=== PATIENT | female | born 1965 | race Caucasian/White ===

== ENCOUNTER 2020-10-15 11:05 | Emergency (ER) | payer SELFPAY ==
[2020-10-15 11:15] VITALS: BP 124/67; PULSE 76; RESP 17; TEMP 36.5; O2SAT 98; BMI 26.4
[2020-10-15 12:30] LABS: Bacteria Urine None Seen; RBC Urine None Seen (0-5/HPF)
[2020-10-15 12:32] LABS: Appearance Urine UA CLEAR; Bilirubin Urine UA NEGATIVE (NEGATIVE); Color Urine UA YELLOW; Glucose Urine UA NEGATIVE (Negative); Ketones Urine UA NEGATIVE (NEGATIVE); Leukocyte Esterase Urine UA NEGATIVE (NEGATIVE); Nitrite Urine UA NEGATIVE (Negative); Occult Blood Urine UA NEGATIVE (Negative); Protein Urine UA NEGATIVE (Negative); Urobilinogen Urine UA 0.2 E.U./dL (0.2)
[2020-10-15 12:37] LABS: pH Urine UA 6.5 (4.5-8.0)
[2020-10-15 12:45] LABS: UR Morphine/Opiate cutoff 300 Negative (Negative); Ur Creatinine Normal (Normal); Ur Specific Gravity Normal (Normal); Urine Amphetamines Positive (Negative); Urine Barbiturates Negative (Negative); Urine Benzodiazepines Negative (Negative); Urine Cocaine Negative (Negative); Urine MDMA Negative (Negative); Urine Methadone Negative (Negative); Urine Methamphetamines Positive (Negative); Urine Oxycodone Negative (Negative); Urine Phencyclidine Negative (Negative); Urine Tetrahydrocannabinol Positive (Negative); Urine Tricyclic Antidepressant Negative (Negative); Urine pH Normal (Normal)
[2020-10-15] MEDS: TET,DIPH,PERTUSS(ACELL),VAC/PF 0.5 ML SYRINGE IM (12:49)
[2020-10-15] MEDS: KETOROLAC 30 MG/ML VIAL IM (12:49)
[2020-10-15 12:57] LABS: WBC Urine 0-1/HPF (0-5/HPF)
[2020-10-15 12:58] LABS: Amorphous Sediment Urine 1+; Culture Indicated Urine Cult Not Indicated; Squamous Epithelial Cell Urine None Seen (0-5/HPF)
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
[2020-10-15 13:19] LABS: Add Manual Diff / Slide Review NO; Basophils Absolute Auto 0 /uL (0-100); Basophils Percent Auto 0.5 % (0-2); Eosinophils Absolute Auto 100 /uL (0-450); Eosinophils Percent Auto 2.1 % (2-4); Hematocrit 41.7 % (36-46); Hemoglobin 13.8 g/dL (12.0-16.0); Lymphocytes Absolute Auto 1700 /uL (1100-4500); Lymphocytes Percent Auto 23.7 % (25-40); Mean Corpuscular HGB Conc 33.1 % (30-36); Mean Corpuscular Hemoglobin 29.8 PG (26-34); Monocytes Absolute Auto 600 /uL (0-900); Monocytes Percent Auto 8.9 % (3-14); Neutrophils Absolute Auto 4500 /uL (1500-7000); Neutrophils Percent Auto 64.8 % (50-75); Platelet Count 326 X10^3/uL (150-400); Red Blood Cell Count 4.64 X10^6/uL (4.0-5.2); Red Cell Distribution Width 13.1 % (11.6-14.8)
[2020-10-15 13:31] LABS: BUN Creatinine Ratio 14.5 (6-22); Blood Urea Nitrogen 8 mg/dL (7-17); Calcium 8.9 mg/dL (8.4-10.2); Carbon Dioxide 27 mmol/L (22-32); Chloride 105 mmol/L (98-107); Estimated Glomerular Filt Rate > 60.0 mL/min (>60); Glucose 94 mg/dL (70-100); HEMOLYSIS 17 (0-50); Potassium 4.5 mmol/L (3.4-5.1); Sodium 137 mmol/L (137-145)
--- NOTE | 2020-10-15 13:47 | PC.NURSE ---
multiple areas of scabs in various states of healing. Pt very jumpy, difficulty in staying still.
[2020-10-15 14:05] VITALS: BP 122/78; PULSE 80; RESP 14; O2SAT 99
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
== END 2020-10-15 14:33 | disposition home or self-care (01) ==
PROVIDERS: Emergency Provider Nurse Practitioner Family
DX: L02.31 Cutaneous abscess of buttock (principal); L02.413 Cutaneous abscess of right upper limb; W57.XXXA Bitten or stung by nonvenomous insect and other nonvenomous arthropods, initial encounter; Z23 Encounter for immunization
CPT/HCPCS: 36415; 80048; 80305; 81001; 85025; 87070; 87075; 87077; 87147; 87186; 87205; 90471; 96372; 99283; 90715; J1885

== ENCOUNTER 2023-03-17 13:32 | Emergency (ER) | payer SELFPAY ==
[2023-03-17 13:39] VITALS: BP 139/83; PULSE 87; RESP 16; TEMP 36.8; O2SAT 100; BMI 22.6
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
[2023-03-17 15:26] LABS: UR Morphine/Opiate cutoff 300 Negative (Negative); Ur Creatinine Normal (Normal); Ur Specific Gravity Normal (Normal); Urine Amphetamines Negative (Negative); Urine Barbiturates Negative (Negative); Urine Benzodiazepines Negative (Negative); Urine Cocaine Negative (Negative); Urine MDMA Negative (Negative); Urine Methadone Negative (Negative); Urine Methamphetamines Negative (Negative); Urine Oxycodone Negative (Negative); Urine Phencyclidine Negative (Negative); Urine Tetrahydrocannabinol Positive (Negative); Urine Tricyclic Antidepressant Negative (Negative); Urine pH Normal (Normal)
[2023-03-17 15:43] LABS: Bacteria Urine None Seen; Culture Indicated Urine Cult Not Indicated; RBC Urine None Seen (0-5/HPF); Squamous Epithelial Cell Urine 1-5 /HPF (0-5/HPF); WBC Urine 1-5/HPF (0-5/HPF)
--- NOTE | 2023-03-17 15:46 | ED_ITS ---
HPI - Recheck/Abnormal Lab/Rx <Sonam Avitia PA-C - Last Filed: 03/17/23 18:05> General Chief Complaint: Recheck/Abnormal Lab/Rx Stated Complaint: post viral inf/lost medication traveling Time Seen by Provider: 03/17/23 14:03 Source: patient Mode of arrival: Ambulatory History of Present Illness HPI narrative: 49-year-old female with history of polysubstance abuse here in the ED for complaints of dizziness and urinary frequency. also has a cough. Hx of COPD, heavy smoker. She states that she was inpatient at [facility] and was discharged 1 week ago. States she was diagnosed with a blood infection during that stay and was discharged with oral antibiotics but she lost them [place] the airport after discharge. States she never took them. She does not remember any other details other than that antibiotics were for a blood infection. She was then seen at [facility] yesterday and patient reports that she left without being seen but medical records were reviewed and patient was seen for urinary frequency with a negative UA and patient was discharged. Patient has vague complaints today. States she is feeling worse since discharge from her possible stay in [place]. Records finally received from [facility] which indicates that patient has been seen numerous times there for episodes of upper extremity thrombophlebitis, most recently admitted from with bacteremia associated with the thrombophlebitis with culture confirmed strep pyogenes. Records indicate that she always leaves [facility]ice prior to finishing her antibiotics and then returns again at a later time for the same issue. She left Against Medical Advice on 02/21 and then returned on 03/07 and was admitted again for bacteremia treatment. According to records from her most recent hospital stay she did essentially complete the full 14 day treatment for bacteremia and her most recent blood cultures were negative. She was discharged on Keflex for 5 days for UTI but otherwise no further treatment was indicated and she had no further evidence of thrombophlebitis. Patient lost her prescription for Keflex and never was treated for the UTI but her UA yesterday at [place] and her UA today here are both negative for infection. She is still complaining of urinary frequency. Related Data Home Medications Medication Instructions Recorded Confirmed albuterol sulfate 90 mcg/actuation 2 inh inhalation Q6HR PRN Wheezing 10/15/20 10/15/20 aerosol inhaler fluoxetine 20 mg capsule 20 mg PO DAILY 10/15/20 10/15/20 gabapentin 300 mg capsule 300 mg PO BID 10/15/20 10/15/20 propranolol 10 mg tablet 10 mg PO DAILY 10/15/20 10/15/20 tiotropium bromide 2.5 1 inh inhalation DAILY 10/15/20 10/15/20 mcg/actuation mist for inhalation (Spiriva Respimat) Previous Rx's Medication Instructions Recorded chlorpromazine 50 mg tablet 50 mg PO TID #60 tabs 03/17/23 Allergies Allergy/AdvReac Type Severity Reaction Status Date / Time Penicillins Allergy Verified 03/17/23 14:27 Review of Systems <Sonam Avitia PA-C - Last Filed: 03/17/23 18:05> Review of Systems Narrative: GENERAL: Reports chills, fatigue, malaise. No fever HEENT: Denies sinus pain, ear pain, sore throat, difficulty swallowing, dizziness. RESPIRATORY: Denies dyspnea, wheezing, hemoptysis, sputum. Reports cough CARDIOVASCULAR: Denies chest pain, palpitations, orthopnea, edema, GASTROINTESTINAL: Denies nausea, vomiting, abdominal pain, diarrhea, constipation, melena. : Denies dysuria, frequency, incontinence, hematuria, urinary retention. MUSCULOSKELETAL: denies weakness, joint pain, or bony pain SKIN: Denies rash, skin lesions, or other NEUROLOGIC: Denies weakness, headache, numbness, change in speech, confusion, seizures, incoordination. PSYCHIATRIC: No concerning psychosocial issues. 12 point review of systems is negative except for those stated above Patient History <Sonam Avitia PA-C - Last Filed: 03/17/23 18:05> Social History Smoking Status: Current every day smoker Smoking Status: Current every day smoker alcohol intake frequency: holidays/special occasions only Substance Use Type: marijuana Exam <MAYNOR Wolf Last Filed: 03/17/23 18:05> Narrative Exam Narrative: GENERAL: [57] year old patient appears stated age. Well-developed patient, in no acute distress. HEAD: Atraumatic. Normocephalic. EYES: Pupils equal round and reactive. Extraocular motions intact. No scleral icterus. No injection or drainage. ENT: Nose without bleeding, purulent drainage. Airway patent. NECK: Trachea midline. Non tender CARDIOVASCULAR: Regular rate and rhythm without murmurs, gallops, or rubs. RESPIRATORY: Diffuse rhonchi in all lung hernandez. Good air entry throughout. Moderate cough noted. No respiratory distress GASTROINTESTINAL: Abdomen soft, non-tender, nondistended. EXTREMITIES: No edema or joint tenderness. No evidence of cellulitis, no palpable cords or evidence of infection anywhere on upper and lower extremities BACK: Nontender without deformity or crepitance. No flank tenderness. NEURO: AOx3. SKIN: No rash or erythema of visible areas Initial Vital Signs Initial Vital Signs: Vital Signs Temperature 98.2 F 03/17/23 13:39 Pulse Rate 87 03/17/23 13:39 Respiratory Rate 16 03/17/23 13:39 Blood Pressure 139/83 03/17/23 13:39 Pulse Oximetry 100 03/17/23 13:39 Oxygen Delivery Method Room Air 03/17/23 13:39 <Narda Monroe DO - Last Filed: 03/18/23 09:40> Initial Vital Signs Initial Vital Signs: Vital Signs Temperature 98.2 F 03/17/23 13:39 Pulse Rate 87 03/17/23 13:39 Respiratory Rate 16 03/17/23 13:39 Blood Pressure 139/83 03/17/23 13:39 Pulse Oximetry 100 03/17/23 13:39 Oxygen Delivery Method Room Air 03/17/23 13:39 Course <Sonam Avitia PA-C - Last Filed: 03/17/23 18:05> Orders Ordered: Discontinued Medications Chlorpromazine HCl (Chlorpromazine 25 Mg Tablet) 50 mg PO NOW ONE Stop: 03/17/23 17:33 Last Admin: 03/17/23 17:41 Dose: Not Given Documented By: TAJ Lorazepam (Lorazepam 0.5 Mg Tablet) 0.5 mg PO NOW ONE Stop: 03/17/23 17:32 Last Admin: 03/17/23 17:41 Dose: 0.5 mg Documented By: TAJ Vital Signs Vital signs: Vital Signs - 8 hr 03/17/23 13:39 03/17/23 17:43 Temperature 98.2 F Pulse Rate 87 74 Respiratory Rate 16 18 Blood Pressure 139/83 150/98 H Pulse Oximetry 100 99 Oxygen Delivery Method Room Air Room Air <Narda Monroe DO - Last Filed: 03/18/23 09:40> Orders Ordered: Discontinued Medications Chlorpromazine HCl (Chlorpromazine 25 Mg Tablet) 50 mg PO NOW ONE Stop: 03/17/23 17:33 Last Admin: 03/17/23 17:41 Dose: Not Given Documented By: RL Lorazepam (Lorazepam 0.5 Mg Tablet) 0.5 mg PO NOW ONE Stop: 03/17/23 17:32 Last Admin: 03/17/23 17:41 Dose: 0.5 mg Documented By: RL Vital Signs Vital signs: Vital Signs - 8 hr 03/17/23 13:39 03/17/23 17:43 Temperature 98.2 F Pulse Rate 87 74 Respiratory Rate 16 18 Blood Pressure 139/83 150/98 H Pulse Oximetry 100 99 Oxygen Delivery Method Room Air Room Air MDM - Recheck/Abnormal Lab/Rx <Sonam Avitia PA-C - Last Filed: 03/17/23 18:05> Lab Data 03/17/23 16:40 03/17/23 16:40 Labs: Lab Results 03/17/23 03/17/23 03/17/23 Range/Units 15:00 16:29 16:40 WBC 6.0 (4.5-11.0) X10^3/uL RBC 4.18 (4.0-5.2) X10^6/uL Hgb 12.5 (12.0-16.0) g/dL Hct 37.3 (36-46) % MCV 89.3 (80-100) fL MCH 30.0 (26-34) PG MCHC 33.6 (30-36) % RDW 14.0 (11.6-14.8) % Plt Count 343 (150-400) X10^3/uL Neut % (Auto) 50.7 (50-75) % Lymph % (Auto) 35.0 (25-40) % [place] % (Auto) 10.4 (3-14) % Eos % (Auto) 2.8 (2-4) % Baso % (Auto) 1.1 (0-2) % Neut # (Auto) 3100 (5762-8710) /uL Lymph # (Auto) 2100 (5144-7966) /uL [place] # (Auto) 600 (0-900) /uL Eos # (Auto) 200 (0-450) /uL Baso # (Auto) 100 (0-100) /uL Sodium 134 L (137-145) mmol/L Potassium 4.2 (3.4-5.1) mmol/L Chloride 101 (98-107) mmol/L Carbon Dioxide 26 (22-32) mmol/L BUN 15 (7-17) mg/dL Creatinine 0.53 (0.52-1.04) mg/dL Estimated GFR > 60 (>60) mL/min BUN/Creatinine Ratio 28.3 H (6-22) Glucose 99 (70-100) mg/dL Calcium 9.2 (8.4-10.2) mg/dL Total Bilirubin 0.2 (0.2-1.3) mg/dL AST 38 H (14-36) IU/L ALT 29 (<35) IU/L Alkaline Phosphatase 64 (38-126) U/L Total Protein 7.2 (6.3-8.2) g/dL Albumin 4.1 (3.5-5.0) g/dL Globulin 3.1 (1.7-4.1) g/dL Albumin/Globulin Ratio 1.3 (1.0-2.8) Urine RBC None seen (0-5/HPF) Urine WBC 1-5/hpf (0-5/HPF) Ur Squamous Epith Cells 1-5 /hpf (0-5/HPF) Urine Bacteria None seen (None) Ur Culture Indicated? Cult not indicated U Opiates 300ng/mL cut Negative (Negative) Ur Oxycodone Screen Negative (Negative) Urine Methadone Screen Negative (Negative) Ur Barbiturates Screen Negative (Negative) U Tricyclic Antidepress Negative (Negative) Ur Phencyclidine Scrn Negative (Negative) Ur Amphetamines Screen Negative (Negative) U Methamphetamines Scrn Negative (Negative) Ur MDMA Scrn (Ecstasy) Negative (Negative) U Benzodiazepines Scrn Negative (Negative) Urine Cocaine Screen Negative (Negative) U Marijuana (THC) Screen Positive H (Negative) SARS-CoV-2 (PCR) Negative (Negative) Influenza A (RT-PCR) Flu a negative (NEGATIVE) Influenza B (RT-PCR) Flu b negative (NEGATIVE) RSV (PCR) Negative (Negative) Urine Dip Bedside Urine Glucose Negative Bedside Urine Bilirubin - Negative Bedside Urine Ketone - Negative Urine Specific [place] 1.010 Bedside Urine Occult Blood - Negative Bedside Urine pH 8 Bedside Urine Protein - Negative Bedside Urine Urobilinogen - Negative Bedside Urine Nitrite - Negative Bedside Urine Leukocytes ++ 125 Esterase Imaging Data Chest x-ray: Radiologist's Impression: [address] [address] XRay Report Signed Patient: Cynthia Owusu MR#: [id number] : 1965 Acct:[id number] Age/Sex: 57 / F Date of Service: 03/17/23 Loc: ED Accession Number: [id number] Procedure: XR chest 2V Ordering Provider: Sonam Avitia P.A-C PROCEDURE: XR CHEST 2V INDICATIONS: cough TECHNIQUE: 2 views of the chest were acquired. COMPARISON: None. FINDINGS: Surgical changes and devices: None. Lungs and pleura: Lungs are clear. No pleural effusions or pneumothorax. Mediastinum: Mediastinal contours are normal. Heart size is normal. Bones and chest wall: No suspicious bony abnormalities. Soft tissues appear unremarkable. IMPRESSION: Unremarkable two view chest x-ray Approved by: Donald Ventura M.D. on 03/17/2023 at 16:58 MDM Narrative Medical decision making narrative: 57-year-old female presented today initially stating that she lost her antibiotics from a recent hospital admission and needed to be treated for a blood infection and a UTI. She reports cough, generalized body aches, and urinary frequency. Reports chills but no fever. She is a poor historian. We also contacted her sister who did not provide any additional helpful details. Eventually I was able to obtain records from [facility] and [facility]. She was seen at [place] last night and just had a UA which was negative and then she left. Records from [place] revealed that she was admitted from February 15 to with upper extremity thrombophlebitis and bacteremia with a positive culture for strep pyogenes. She was given IV antibiotics but left before these were completed. She then returned on March 07 to complete treatment. She was given additional IV antibiotics and throughout that hospital stay her blood cultures were all negative. According to Infectious Disease she technically had completed the full treatment for her bacteremia at that point and since most recent blood cultures were negative and there were no remaining signs of thrombophlebitis or cellulitis or sepsis she was determined to be done with treatment. Her urine culture did test positive for Klebsiella and she was discharged with 5 days of oral Keflex. This is the prescription that patient lost. However she had a negative UA as scheduled yesterday and a negative UA today here. She complains of urinary frequency but there are no signs of infection today. She has unremarkable labs today, negative COVID, unremarkable chest x-ray. We obtained 1 blood culture which is pending and if it did happen to be positive we would call patient and have her return for treatment. She remained comfortable and resting on the exam bed throughout her stay today. She did occasionally becomes slightly agitated and argumentative but overall no major behavioral concerns today. Records from [facility] revealed that she was treated with Thorazine 50 mg and Ativan throughout her stay and discharged with a prescription for Thorazine which she lost as well. Patient given Ativan 0.5 mg today but aware that I will not provide her a prescription for this. I did send Thorazine to the pharmacy with instructions to follow-up with PCP and mental health as soon as possible for any refills. patient has no SI or HI. She had a visit with social work while here who provided her with various resources per patient's request. [] Multiple etiologies for patient's symptoms considered including, but not limited to: Bacteremia, sepsis, thrombophlebitis, COVID-19, pneumonia, drug use, bipolar disorder Prior Charts reviewed: Extensive records from [facility] in [place] regional Labs reviewed and interpreted by myself: Labs obtained today and labs from [facility] Imaging reviewed: Chest x-ray today Consultations: Discussed case with Dr. Monroe who agreed with plan to discharge patient at this time Patient's symptoms improved over duration of stay with above-stated therapies. Findings and discharge diagnosis discussed with patient/family followed by verbalization of understanding Return precautions discussed with patient/family whom verbalize understanding of diagnosis and plan <Narda Monroe, DO - Last Filed: 03/18/23 09:40> Lab Data Labs: Lab Results 03/17/23 03/17/23 03/17/23 Range/Units 15:00 16:29 16:40 WBC 6.0 (4.5-11.0) X10^3/uL RBC 4.18 (4.0-5.2) X10^6/uL Hgb 12.5 (12.0-16.0) g/dL Hct 37.3 (36-46) % MCV 89.3 (80-100) fL MCH 30.0 (26-34) PG MCHC 33.6 (30-36) % RDW 14.0 (11.6-14.8) % Plt Count 343 (150-400) X10^3/uL Neut % (Auto) 50.7 (50-75) % Lymph % (Auto) 35.0 (25-40) % [place] % (Auto) 10.4 (3-14) % Eos % (Auto) 2.8 (2-4) % Baso % (Auto) 1.1 (0-2) % Neut # (Auto) 3100 (0819-0353) /uL Lymph # (Auto) 2100 (4952-2711) /uL [place] # (Auto) 600 (0-900) /uL Eos # (Auto) 200 (0-450) /uL Baso # (Auto) 100 (0-100) /uL Sodium 134 L (137-145) mmol/L Potassium 4.2 (3.4-5.1) mmol/L Chloride 101 (98-107) mmol/L Carbon Dioxide 26 (22-32) mmol/L BUN 15 (7-17) mg/dL Creatinine 0.53 (0.52-1.04) mg/dL Estimated GFR > 60 (>60) mL/min BUN/Creatinine Ratio 28.3 H (6-22) Glucose 99 (70-100) mg/dL Calcium 9.2 (8.4-10.2) mg/dL Total Bilirubin 0.2 (0.2-1.3) mg/dL AST 38 H (14-36) IU/L ALT 29 (<35) IU/L Alkaline Phosphatase 64 (38-126) U/L Total Protein 7.2 (6.3-8.2) g/dL Albumin 4.1 (3.5-5.0) g/dL Globulin 3.1 (1.7-4.1) g/dL Albumin/Globulin Ratio 1.3 (1.0-2.8) Urine RBC None seen (0-5/HPF) Urine WBC 1-5/hpf (0-5/HPF) Ur Squamous Epith Cells 1-5 /hpf (0-5/HPF) Urine Bacteria None seen (None) Ur Culture Indicated? Cult not indicated U Opiates 300ng/mL cut Negative (Negative) Ur Oxycodone Screen Negative (Negative) Urine Methadone Screen Negative (Negative) Ur Barbiturates Screen Negative (Negative) U Tricyclic Antidepress Negative (Negative) Ur Phencyclidine Scrn Negative (Negative) Ur Amphetamines Screen Negative (Negative) U Methamphetamines Scrn Negative (Negative) Ur MDMA Scrn (Ecstasy) Negative (Negative) U Benzodiazepines Scrn Negative (Negative) Urine Cocaine Screen Negative (Negative) U Marijuana (THC) Screen Positive H (Negative) SARS-CoV-2 (PCR) Negative (Negative) Influenza A (RT-PCR) Flu a negative (NEGATIVE) Influenza B (RT-PCR) Flu b negative (NEGATIVE) RSV (PCR) Negative (Negative) Urine Dip Bedside Urine Glucose Negative Bedside Urine Bilirubin - Negative Bedside Urine Ketone - Negative Urine Specific [place] 1.010 Bedside Urine Occult Blood - Negative Bedside Urine pH 8 Bedside Urine Protein - Negative Bedside Urine Urobilinogen - Negative Bedside Urine Nitrite - Negative Bedside Urine Leukocytes ++ 125 Esterase Discharge Plan Departure Patient Disposition: Home Clinical Impression: Cough, Anxiety Activity Restrictions/Additional Instructions: Thank you for coming to the [facility] Emergency Department today. We reviewed your records extensively from [facility] and repeated several labs today and it appears that your blood infection and urinary tract infection are both resolved. Your labs and urine showed no infection today. You were negative for COVID. Your chest x-ray looks okay. I have sent a prescription for your Thorazine to [facility] [place]. Please find a primary care doctor and mental health provider as soon as possible in order to receive a refill of this medication. I hope you feel better soon. Please follow up with your primary care provider within a week if your symptoms continue. If you do not have a primary care provider please contact the [facility] Resource line at [phone]. They will ask some questions about your medical history and help you get set up with a provider in the community. Prescriptions: New chlorpromazine 50 mg tablet 50 mg PO TID Qty: 60 0RF No Action propranolol 10 mg tablet 10 mg PO DAILY gabapentin 300 mg capsule 300 mg PO BID albuterol sulfate 90 mcg/actuation HFA aerosol inhaler 2 inh INHALATION Q6HR PRN (Reason: Wheezing) fluoxetine 20 mg capsule 20 mg PO DAILY Spiriva Respimat 2.5 mcg/actuation mist 1 inh INHALATION DAILY Stand Alone Forms: Patient Portal/API ED Sign-out <Narda Monroe DO - Last Filed: 03/18/23 09:40> Cosign ED Attending Cosignature Attestation: I was immediately available in the department for consultation. Documentation has been reviewed.
--- NOTE | 2023-03-17 16:20 | DI.RAD.S_ITS ---
PROCEDURE: XR CHEST 2V INDICATIONS: cough TECHNIQUE: 2 views of the chest were acquired. COMPARISON: None. FINDINGS: Surgical changes and devices: None. Lungs and pleura: Lungs are clear. No pleural effusions or pneumothorax. Mediastinum: Mediastinal contours are normal. Heart size is normal. Bones and chest wall: No suspicious bony abnormalities. Soft tissues appear unremarkable. IMPRESSION: Unremarkable two view chest x-ray Approved by: Donald Ventura M.D. on 03/17/2023 at 16:58
[2023-03-17 16:50] LABS: Add Manual Diff / Slide Review NO; Basophils Absolute Auto 100 /uL (0-100); Basophils Percent Auto 1.1 % (0-2); Eosinophils Absolute Auto 200 /uL (0-450); Eosinophils Percent Auto 2.8 % (2-4); Hematocrit 37.3 % (36-46); Hemoglobin 12.5 g/dL (12.0-16.0); Lymphocytes Absolute Auto 2100 /uL (1100-4500); Mean Corpuscular HGB Conc 33.6 % (30-36); Mean Corpuscular Volume 89.3 fL (80-100); Monocytes Absolute Auto 600 /uL (0-900); Monocytes Percent Auto 10.4 % (3-14); Neutrophils Absolute Auto 3100 /uL (1500-7000); Neutrophils Percent Auto 50.7 % (50-75); Platelet Count 343 X10^3/uL (150-400); Red Blood Cell Count 4.18 X10^6/uL (4.0-5.2)
[2023-03-17 17:00] LABS: Alanine Aminotransferase 29 IU/L (<35); Albumin 4.1 g/dL (3.5-5.0); Albumin Globulin Ratio 1.3 (1.0-2.8); Alkaline Phosphatase 64 U/L (38-126); Aspartate Aminotransferase 38 IU/L (14-36); BUN Creatinine Ratio 28.3 (6-22); Bilirubin Total 0.2 mg/dL (0.2-1.3); Blood Urea Nitrogen 15 mg/dL (7-17); Calcium 9.2 mg/dL (8.4-10.2); Carbon Dioxide 26 mmol/L (22-32); Chloride 101 mmol/L (98-107); Estimated Glomerular Filt Rate > 60 mL/min (>60); Globulin 3.1 g/dL (1.7-4.1); Glucose 99 mg/dL (70-100); HEMOLYSIS 31 (0-50); Potassium 4.2 mmol/L (3.4-5.1); Sodium 134 mmol/L (137-145); Total Protein 7.2 g/dL (6.3-8.2)
[2023-03-17 17:13] LABS: Influenza A - CEPHEID Flu A NEGATIVE (NEGATIVE); Influenza B - CEPHEID Flu B NEGATIVE (NEGATIVE); Respiratory Syncytial Virus Negative (Negative)
[2023-03-17 17:21] LABS: COVID-19 CEPHEID 4-PLEX PCR Negative (Negative)
--- NOTE | 2023-03-17 17:38 | CM.SWNOTE ---
ED INVENTORY CONTROL MANAGER Note INVENTORY CONTROL MANAGER receives ED INVENTORY CONTROL MANAGER consult per patient's request for housing resources. Patient is 57 y/o who presents to ED due to concern for needing rx and post viral infection. Patient was seen at [facility] yesterday and states she was at [facility] last week, patient states she just moved here. Patient has hx of bateremia. INVENTORY CONTROL MANAGER enters room to meet with patient. Patient presents as labile, A/Ox4. Patient endorses she is staying at [facility] currently with motel voucher through [employer]. Patient endorse she is awaiting a call from a recovery house for housing. Patient states she does not have a phone and has been using the [employer] phone. Patient endorses she has been in contact with [employer]. Patient endorses she receives SSI and has Medicaid through the government. Patient endorses she knows how to go to [facility] and apply for state insurance and benefits. Patient denies substance or ETOH use other than marijuana. Patient endorses concern for her ongoing rx. INVENTORY CONTROL MANAGER encourages patient to establish insurance with [facility] and then to seek PCP for ongoing f/u. INVENTORY CONTROL MANAGER provides patient with resources for housing, food, recovery houses and crisis resources. Plan: patient to d/c to home upon medical clearance, patient to f/u with resources provided. TAL Singh
[2023-03-17] MEDS: LORazepam 0.5 MG TABLET PO (17:41)
[2023-03-17 17:43] VITALS: BP 150/98; PULSE 74; RESP 18; O2SAT 99
--- NOTE | 2023-03-18 12:33 | PC.NURSE ---
Prescription printed by pt request. Pt also requested copy of discharge instructions, given.
== END 2023-03-17 17:48 | disposition home or self-care (01) ==
PROVIDERS: Emergency Provider Physician Assistant
DX: R05.9 Cough, unspecified (principal); F41.9 Anxiety disorder, unspecified; N39.0 Urinary tract infection, site not specified; Z20.822 Contact with and (suspected) exposure to COVID-19
CPT/HCPCS: 0241U; 71046; 80053; 80305; 81003; 81015; 85025; 87040; 87077; 87086; 87147; 87186; 99283; 99284

== ENCOUNTER 2025-03-22 07:45 | Emergency (ER) | payer SELFPAY ==
--- NOTE | 2025-03-22 08:13 | PC.NURSE ---
This RN went out to the lobby to bring the patient back to a treatment room and was advised by ED Registration staff that patient went outside to smoke. This RN went out to the parking lot to find patient and there were no patient's standing outside. Registration was advised to contact furnace converter should the patient return to the lobby. sales service executive aware.
[2025-03-22 08:19] VITALS: PULSE 88; O2SAT 93
[2025-03-22 08:30] VITALS: BP 145/83; PULSE 73; RESP 24; O2SAT 98
[2025-03-22 08:34] VITALS: BP 145/83; PULSE 74; RESP 18; TEMP 36.6; O2SAT 98; BMI 23.6
[2025-03-22 09:00] VITALS: BP 144/83; PULSE 81; O2SAT 98
[2025-03-22 09:30] VITALS: BP 130/87; PULSE 71; RESP 22; O2SAT 96
--- NOTE | 2025-03-22 09:39 | PC.NURSE ---
PT refusing EKG at this time.
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
[2025-03-22 10:00] VITALS: BP 136/81; PULSE 66; RESP 22; O2SAT 97
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
== END 2025-03-22 10:20 | disposition left against medical advice (07) ==
PROVIDERS: Emergency Provider Emergency Medicine
DX: S05.91XA Unspecified injury of right eye and orbit, initial encounter (principal); Y04.2XXA Assault by strike against or bumped into by another person, initial encounter; Z53.29 Procedure and treatment not carried out because of patient's decision for other reasons
CPT/HCPCS: 99282; 99283